=== PATIENT | male | born 1940 | race Caucasian/White ===

== ENCOUNTER 2019-08-19 09:06 | Emergency (ER) | payer MEDICARE, OTHER ==
--- NOTE | 2019-08-19 09:38 | ERPHSYRPT ---
- History of Present Illness Time Seen by Provider: 08/19/19 09:28 Source: patient, family Patient Subjective Stated Complaint: STATES HAS HAD A FEVER AND COUGH SINCE YESTERDAY. ALSO HAVING LOWER ABD PAIN. RECENTLY HAD ANGIOGRAM DONE AND HAS SEVERE BLOCKAGE IN LEFT LEG. Triage Nursing Assessment: TO ROOM PER W/C. SKIN W/D, COLOR NORMAL, RESP NONLABORED. OCCASIONAL DRY COUGH NOTED. ABD SOFT, TENDER IN LOWER ABD Physician History: 79 yo with h/o stroke with left side residual weakness, PVD s/o stenting with recent angiogram LLE needing bypass graft soon is here with worsening minimal productive cough for 2 days and fever with TMAX 102 last night which is better after tylenol. because of the worsening cough is having some pain in the lower abd/groin area of angiogram . no leg swelling/increased pain/redness reported.also reports increased urinary frequency since last night but no burning/hematuria. denies any N/V/D. he has baseline difficulty walking but since yesterday is getting a little more than usual but no focal weakness. Timing/Duration: day(s) (2), intermittent, worse Cough Quality/Degree: moderate, productive cough Modifying Factors: Improves With: nothing Associated Symptoms: fever, chills, chest pain/soreness, cough, sore throat Allergies/Adverse Reactions: acetaminophen [From [place]] Adverse Reaction (Mild, Verified 08/19/19 09:18) hydrocodone [From [place]] Adverse Reaction (Mild, Verified 08/19/19 09:18) Home Medications: Aspirin EC 325 mg [Ecotrin 325 MG] 81 mg PO DAILY 07/06/13 [History] Atorvastatin Calcium [Lipitor] 20 mg PO DAILY 07/06/13 [History] Clopidogrel Bisulfate 75 mg [PLAVIX 75 MG Tablet] 75 mg PO DAILY 07/06/13 [History] Enalapril Maleate [Vasotec] 20 mg PO BID 07/06/13 [History] Amlodipine Besylate 5 mg [Norvasc 5 mg] 5 mg PO DAILY 08/19/19 [History] Calc/D3/Mag/Zn/Ana/John/[place] [Calcium 600 mg Plus Vit D Tab] 2 each PO DAILY 08/19/19 [History] Hx Tetanus, Diphtheria Vaccination/Date Given: No Hx Influenza Vaccination/Date Given: Yes Hx Pneumococcal Vaccination/Date Given: Yes - Review of Systems Constitutional: Fever, Chills, Fatigue Eyes: No Symptoms Ears, Nose, & Throat: Throat Pain Respiratory: Cough Cardiac: Chest Pain Abdominal/Gastrointestinal: No Nausea, No Vomiting, No Diarrhea Genitourinary Symptoms: Frequency, No Dysuria, No Hematuria, No Hesitancy, No Incontinence Musculoskeletal: Myalgias Skin: No Symptoms Neurological: No Symptoms Psychological: No Symptoms Endocrine: No Symptoms Hematologic/Lymphatic: No Symptoms Immunological/Allergic: No Symptoms - Past Medical History Pertinent Past Medical History: Yes Neurological History: Stroke Cardiac History: Coronary Artery Disease, High Cholesterol, Hypertension, Peripheral Vascular Disease, Other Endocrine Medical History: Hypothyroidism - Past Surgical History Past Surgical History: Yes Other Surgical History: thyroid and para thyroid - Social History Smoking Status: Former smoker Exposure to second hand smoke: No Drug Use: none Patient Lives Alone: No - Nursing Vital Signs Nursing Vital Signs: Initial Vital Signs Temperature 98.2 F 08/19/19 09:09 Pulse Rate 91 H 08/19/19 09:09 Respiratory Rate 18 08/19/19 09:09 Blood Pressure 150/76 08/19/19 09:09 O2 Sat by Pulse Oximetry 97 08/19/19 09:09 Pain Scale Pain Intensity 5 - Physical Exam General Appearance: no apparent distress Eye Exam: eyes nml inspection Ears, Nose, Throat Exam: TMs normal, pharyngeal erythema Neck Exam: normal inspection, non-tender, supple, full range of motion, Kernig's Respiratory Exam: normal breath sounds, lungs clear, No chest tenderness Cardiovascular Exam: regular rate/rhythm, normal heart sounds, capillary refill >3 sec (LLE) Gastrointestinal/Abdomen Exam: soft, normal bowel sounds Back Exam: normal inspection Extremity Exam: normal inspection, normal range of motion Neurologic Exam: alert, oriented x 3, cooperative, cardiology physician II-XII nml as tested, normal mood/affect, No sensory deficit Skin Exam: normal color SpO2 Interpretation: normal SpO2: 97 O2 Delivery: Room Air - Course Nursing assessment & vital signs reviewed: Yes Ordered Tests: Active Orders 24 hr Category Date Time Status IV Insertion STAT Care 08/19/19 09:36 Active CHEST 2 VIEWS (PA AND LAT) Stat Exams 08/19/19 09:36 Taken BLOOD CULTURE Stat Lab 08/19/19 09:40 Received CBC W DIFF Stat Lab 08/19/19 09:55 Completed CMP Stat Lab 08/19/19 09:55 Completed Lactic Acid Stat Lab 08/19/19 09:36 Completed UA W/RFX UR CULTURE Stat Lab 08/19/19 11:29 Completed Medication Summary Discontinued Medications Generic Name Dose Route Start Last Admin Trade Name Berta PRN Reason Stop Dose Admin Oseltamivir Phosphate 30 mg 08/19/19 11:36 08/19/19 12:07 Oseltamivir Phosphate 30 Mg Cap PO 08/19/19 11:37 30 mg ONCE ONE Administration Lab/Rad Data: Laboratory Result Diagrams 08/19/19 09:55 08/19/19 09:55 Laboratory Results 08/19/19 08/19/19 08/19/19 Range/Units 11:29 09:55 09:55 WBC (4.0-10.5) K/mm3 RBC (4.1-5.6) M/mm3 Hgb (12.5-18.0) gm/dl Hct (42-50) % MCV (78-100) fl MCH (26-32) pg MCHC (32-36) g/dl RDW (11.5-14.0) % Plt Count (150-450) K/mm3 MPV (7.5-11.0) fl Gran % (36.0-66.0) % Eos # (Auto) (0-0.5) Absolute Lymphs (auto) (1.0-4.6) Absolute Monos (auto) (0.0-1.3) Lymphocytes % (24.0-44.0) % Monocytes % (0.0-12.0) % Eosinophils % (0.00-5.0) % Basophils % (0.0-0.4) % Absolute Granulocytes (1.4-6.9) Basophils # (0-0.4) Sodium 142 (137-145) mmol/L Potassium 3.9 (3.5-5.1) mmol/L Chloride 106 (98-107) mmol/L Carbon Dioxide 23 (22-30) mmol/L Anion Gap 16.8 H (5-15) MEQ/L BUN 20 (9-20) mg/dL Creatinine 1.26 H (0.66-1.25) mg/dL Estimated GFR 58.8 ML/MIN Glucose 124 H (74-106) mg/dL Lactic Acid (0.4-2.0) Calcium 9.1 (8.4-10.2) mg/dL Total Bilirubin 0.60 (0.2-1.3) mg/dL AST 33 (17-59) U/L ALT 19 (0-50) U/L Alkaline Phosphatase 79 (38-126) U/L Serum Total Protein 6.8 (6.3-8.2) g/dL Albumin 3.9 (3.5-5.0) g/dL Urine Color YELLOW (YELLOW) Urine Appearance CLEAR (CLEAR) Urine pH 5.0 (5-6) Ur Specific [place] 1.019 (1.005-1.025) Urine Protein NEGATIVE (Negative) Urine Ketones TRACE (NEGATIVE) Urine Blood SMALL (0-5) David/ul Urine Nitrite NEGATIVE (NEGATIVE) Urine Bilirubin NEGATIVE (NEGATIVE) Urine Urobilinogen NEGATIVE (0-1) mg/dL Ur Leukocyte Esterase NEGATIVE (NEGATIVE) Urine WBC (Auto) 0-2 (0-5) /HPF Urine RBC (Auto) 3-5 (0-2) /HPF U Epithel Cells (Auto) NONE (FEW) /HPF Urine Bacteria (Auto) NONE (NEGATIVE) /HPF Urine Mucus (Auto) SLIGHT (NEGATIVE) /HPF Urine Culture Reflexed NO (NO) Urine Glucose NEGATIVE (NEGATIVE) mg/dL Influenza Type A Ag NEGATIVE (NEGATIVE) Influenza Type B Ag POSITIVE (NEGATIVE) RSV (PCR) NEGATIVE (Negative) Slides for Path Review 08/19/19 08/19/19 Range/Units 09:55 09:36 WBC 11.2 H (4.0-10.5) K/mm3 RBC 4.70 (4.1-5.6) M/mm3 Hgb 14.1 (12.5-18.0) gm/dl Hct 42.5 (42-50) % MCV 90.4 (78-100) fl MCH 30.0 (26-32) pg MCHC 33.2 (32-36) g/dl RDW 14.3 H (11.5-14.0) % Plt Count 130 L (150-450) K/mm3 MPV 12.4 H (7.5-11.0) fl Gran % 88.8 H (36.0-66.0) % Eos # (Auto) 0.01 (0-0.5) Absolute Lymphs (auto) 0.32 L (1.0-4.6) Absolute Monos (auto) 0.91 (0.0-1.3) Lymphocytes % 2.9 L (24.0-44.0) % Monocytes % 8.1 (0.0-12.0) % Eosinophils % 0.1 (0.00-5.0) % Basophils % 0.1 (0.0-0.4) % Absolute Granulocytes 9.94 H (1.4-6.9) Basophils # 0.01 (0-0.4) Sodium (137-145) mmol/L Potassium (3.5-5.1) mmol/L Chloride (98-107) mmol/L Carbon Dioxide (22-30) mmol/L Anion Gap (5-15) MEQ/L BUN (9-20) mg/dL Creatinine (0.66-1.25) mg/dL Estimated GFR ML/MIN Glucose (74-106) mg/dL Lactic Acid 1.6 (0.4-2.0) Calcium (8.4-10.2) mg/dL Total Bilirubin (0.2-1.3) mg/dL AST (17-59) U/L ALT (0-50) U/L Alkaline Phosphatase (38-126) U/L Serum Total Protein (6.3-8.2) g/dL Albumin (3.5-5.0) g/dL Urine Color (YELLOW) Urine Appearance (CLEAR) Urine pH (5-6) Ur Specific [place] (1.005-1.025) Urine Protein (Negative) Urine Ketones (NEGATIVE) Urine Blood (0-5) David/ul Urine Nitrite (NEGATIVE) Urine Bilirubin (NEGATIVE) Urine Urobilinogen (0-1) mg/dL Ur Leukocyte Esterase (NEGATIVE) Urine WBC (Auto) (0-5) /HPF Urine RBC (Auto) (0-2) /HPF U Epithel Cells (Auto) (FEW) /HPF Urine Bacteria (Auto) (NEGATIVE) /HPF Urine Mucus (Auto) (NEGATIVE) /HPF Urine Culture Reflexed (NO) Urine Glucose (NEGATIVE) mg/dL Influenza Type A Ag (NEGATIVE) Influenza Type B Ag (NEGATIVE) RSV (PCR) (Negative) Slides for Path Review YES - Progress Progress: improved, re-examined Air Movement: good Progress Note: he has no fever while in here . no new focal neuro sx. has influenza b and started on renal dose of tamiflu . has questionabale infilterate and started on doxy . no UTI. discussed with patient family about obs abdomission vs going home and they are ok with going home which seems reasonable as his gen weakness and bodyaches are from flu most likely.has thrombocytopenia but not critically low and recommended recheck with PCP in 1-2 days which he would. at this point he is being discharged with anticipatory guidance to return for any worsening which he understands. 08/19/19 12:22 Blood Culture(s) Obtained: No Antibiotics given: Yes Counseled pt/family regarding: lab results, diagnosis, need for follow-up, rad results - Departure Departure Disposition: Home Clinical Impression: Influenza B, Bronchitis Condition: Fair Critical Care Time: No Referrals: CARI HARRINGTON [Primary Care Provider] - (1-2 days for re evaluation and re check of platelet count ) Additional Instructions: take tylenol as needed for fever/body aches. follow up with PCP for re evaluation in 1-2 days and recheck of the platelets . return to ER for worsening Prescriptions: Doxycycline Hyclate 100 mg [Vibramycin 100 MG] 100 mg PO BID #14 tab Oseltamivir 75 mg [Tamiflu 75MG Capsule] 30 mg PO BID #9 cap
[2019-08-19 10:28] LABS: Absolute Neutrophil Ct (ANC) 9.94 (1.4-6.9); BASOPHIL % 0.1 % (0.0-0.4); Basophil (Absolute #) 0.01 (0-0.4); Eosinophil % 0.1 % (0.00-5.0); Eosinophil (Absolute #) 0.01 (0-0.5); Hematocrit 42.5 % (42-50); Hemoglobin 14.1 gm/dl (12.5-18.0); Lymphocyte (Absolute #) 0.32 (1.0-4.6); Lymphocytes % 2.9 % (24.0-44.0); Mean Cell Volume 90.4 fl (78-100); Mean Corpuscular Hgb Concent. 33.2 g/dl (32-36); Mean Platelet Volume 12.4 fl (7.5-11.0); Monocyte (Absolute #) 0.91 (0.0-1.3); Monocytes % 8.1 % (0.0-12.0); Neutrophil % 88.8 % (36.0-66.0); Platelet Count 130 K/mm3 (150-450); Red Cell Distribution Width 14.3 % (11.5-14.0); White Blood Count 11.2 K/mm3 (4.0-10.5)
[2019-08-19 10:36] LABS: ALBUMIN 3.9 g/dL (3.5-5.0); ANION GAP 16.8 MEQ/L (5-15); BILIRUBIN,TOTAL 0.6 mg/dL (0.2-1.3); Calcium 9.1 mg/dL (8.4-10.2); Creatinine 1 1.26 mg/dL (0.66-1.25); Potassium 3.9 mmol/L (3.5-5.1); Total Protein 6.8 g/dL (6.3-8.2)
[2019-08-19 10:59] LABS: INFLUENZA A NEGATIVE (NEGATIVE)
[2019-08-19 11:00] LABS: INFLUENZA B POSITIVE (NEGATIVE); RESPIRATORY SYNCTIAL VIRUS NEGATIVE (Negative)
[2019-08-19 11:34] LABS: Appearance CLEAR (CLEAR); Bilirubin NEGATIVE (NEGATIVE); Blood SMALL Ery/ul (0-5); Glucose NEGATIVE (NEGATIVE); Ketones TRACE (NEGATIVE); Leukocyte Esterase NEGATIVE (NEGATIVE); Mucus SLIGHT /HPF (NEGATIVE); Nitrite NEGATIVE (NEGATIVE); Protein,Urine Dip NEGATIVE (Negative); Specific Gravity 1.019 (1.005-1.025); Urobilinogen NEGATIVE mg/dL (0-1); WBC 0-2 /HPF (0-5)
[2019-08-19] MEDS ORDERED: OSELTAMIVIR PHOSPHATE 30 MG CAP PO ONE (11:36)
[2019-08-19 11:37] LABS: Slide Review 1 YES
[2019-08-19 12:15] VITALS: BP 133/62; PULSE 88
[2019-08-19 12:21] VITALS: O2SAT 97
--- NOTE | 2019-08-19 18:29 | XRAY ---
Indication: Cough and fever. Comparison: August 08, 2019. PA/lateral chest unchanged again demonstrating minimal left base atelectasis/scarring. Remaining heart and lungs unremarkable. No new/acute cardiopulmonary abnormalities.
== END 2019-08-19 12:49 | disposition home or self-care (01) ==
LOC: ED 09:06
DX: J11.1 Influenza due to unidentified influenza virus with other respiratory manifestations (principal); J40 Bronchitis, not specified as acute or chronic; R07.9 Chest pain, unspecified; R05 Cough; R50.9 Fever, unspecified; Z79.899 Other long term (current) drug therapy; R53.83 Other fatigue; I25.10 Atherosclerotic heart disease of native coronary artery without angina pectoris; E78.00 Pure hypercholesterolemia, unspecified; I10 Essential (primary) hypertension; I73.9 Peripheral vascular disease, unspecified
CPT/HCPCS: 36000; 36415; 71046; 80053; 81001; 83605; 85025; 87040; 87631; 99284; A9270-GY

== ENCOUNTER 2019-12-22 15:46 | Emergency (ER) | payer MEDICARE, OTHER ==
--- NOTE | 2019-12-22 15:55 | ERPHSYRPT ---
- History of Present Illness Time Seen by Provider: 12/22/19 15:55 Source: patient, family Exam Limitations: no limitations Physician History: Is a 79-year-old gentleman who has a history of chronic recurring constipation. His last bowel movement this episode was approximately 3 to 4 days ago. He only took Mylanta this morning. He has not tried any other form of medication or treatment to relieve his constipation. Patient states he is never had a colonoscopy. Patient states he is not on any narcotic medication. Patient states he has no significant abdominal pain. He said no nausea vomiting. Patient states he has been passing flatus and in fact during this examination he passed a large amount of flatus. Timing/Duration: day(s) (3 to 4 days) Severity: mild Associated Symptoms: No nausea, No vomiting, No abdominal pain, No shortness of breath, No chest pain, No fever, No loss of appetite Allergies/Adverse Reactions: acetaminophen [From [place]] Adverse Reaction (Mild, Verified 08/19/19 09:18) hydrocodone [From [place]] Adverse Reaction (Mild, Verified 08/19/19 09:18) Home Medications: Atorvastatin Calcium [Lipitor] 20 mg PO DAILY 07/06/13 [History] Clopidogrel Bisulfate 75 mg [PLAVIX 75 MG Tablet] 75 mg PO DAILY 07/06/13 [History] Enalapril Maleate [Vasotec] 20 mg PO BID 07/06/13 [History] Amlodipine Besylate 5 mg [Norvasc 5 mg] 5 mg PO DAILY 08/19/19 [History] Calc/D3/Mag/Zn/Ana/John/[place] [Calcium 600 mg Plus Vit D Tab] 2 each PO DAILY 08/19/19 [History] Aspirin 81 mg PO DAILY 12/22/19 [History] Hx Tetanus, Diphtheria Vaccination/Date Given: No Hx Influenza Vaccination/Date Given: Yes Hx Pneumococcal Vaccination/Date Given: Yes Travel Risk - International Travel Have you traveled outside of the country in past 3 weeks: No - Coronavirus Screening Are you exhibiting any of the following symptoms?: No Close contact with a COVID-19 positive Pt in past 14-21 Days: No - Review of Systems Constitutional: No Symptoms Eyes: No Symptoms Ears, Nose, & Throat: No Symptoms Respiratory: No Symptoms Cardiac: No Symptoms Abdominal/Gastrointestinal: Constipation, No Abdominal Pain, No Nausea, No Vomiting, No Diarrhea Genitourinary Symptoms: No Symptoms Musculoskeletal: No Symptoms Skin: No Symptoms Neurological: No Symptoms Psychological: No Symptoms Endocrine: No Symptoms Hematologic/Lymphatic: No Symptoms Immunological/Allergic: No Symptoms All Other Systems: Reviewed and Negative - Past Medical History Pertinent Past Medical History: Yes Neurological History: Stroke Cardiac History: Coronary Artery Disease, High Cholesterol, Hypertension, Peripheral Vascular Disease, Other Endocrine Medical History: Hypothyroidism Musculoskeletal History: No Pertinent History GI Medical History: Other (Recurrent constipation) History: No Pertinent History Psycho-Social History: No Pertinent History Male Reproductive Disorders: No Pertinent History - Past Surgical History Past Surgical History: Yes Neuro Surgical History: No Pertinent History Cardiac: No Pertinent History Respiratory: No Pertinent History Gastrointestinal: No Pertinent History Genitourinary: No Pertinent History Musculoskeletal: No Pertinent History Male Surgical History: No Pertinent History Other Surgical History: thyroid and para thyroid - Social History Smoking Status: Former smoker Exposure to second hand smoke: No Drug Use: none Patient Lives Alone: No - Nursing Vital Signs Nursing Vital Signs: Initial Vital Signs Temperature 98.2 F 12/22/19 15:49 Pulse Rate 67 12/22/19 15:49 Respiratory Rate 18 12/22/19 15:49 Blood Pressure 113/62 12/22/19 15:49 O2 Sat by Pulse Oximetry 96 12/22/19 15:49 Pain Scale Pain Intensity 0 - Physical Exam General Appearance: no apparent distress, alert Eye Exam: PERRL/EOMI, eyes nml inspection Ears, Nose, Throat Exam: normal ENT inspection, moist mucous membranes Neck Exam: normal inspection, non-tender, supple, full range of motion Respiratory Exam: normal breath sounds, lungs clear, airway intact, No chest tenderness, No respiratory distress Cardiovascular Exam: regular rate/rhythm, normal heart sounds, normal peripheral pulses Gastrointestinal/Abdomen Exam: soft, normal bowel sounds, other (No distention) , No tenderness, No guarding, No rebound Rectal Exam: not done Back Exam: normal inspection, normal range of motion, No CVA tenderness, No vertebral tenderness Extremity Exam: normal inspection, normal range of motion, pelvis stable Neurologic Exam: alert, oriented x 3, cooperative, access control specialist II-XII nml as tested, normal mood/affect, nml cerebellar function, nml station & gait Skin Exam: normal color, warm, dry Lymphatic Exam: No adenopathy SpO2 Interpretation: normal O2 Delivery: Room Air - Course Nursing assessment & vital signs reviewed: Yes - Progress Progress: unchanged Counseled pt/family regarding: diagnosis, need for follow-up - Departure Departure Disposition: Home Clinical Impression: Constipation Condition: Stable Critical Care Time: No Referrals: CARI HARRINGTON [Primary Care Provider] - Additional Instructions: Drink plenty of fluids. Increase your activity. Use MiraLAX daily. You can obtain MiraLAX [id number] and follow those directions. You have been provided with a bottle of magnesium citrate. Drink that full bottle rapidly. Approximately 45 minutes later give yourself a fleets enema rectally which you were provided. Follow-up with your primary care physician for referral to a morgue attendant for a colonoscopy if indicated. If you have constipation again make sure you are drinking well, add a stool softener to your bowel hygiene regimen, use [id number] magnesium citrate and [id number] fleets enema rectally and/or [id number] Dulcolax suppositories or glycerin suppositories.
[2019-12-22] MEDS ORDERED: CITROMA 296 ML PO ONE (16:58)
[2019-12-22] MEDS ORDERED: CITROMA 296 ML ONE (17:05)
[2019-12-22 17:09] VITALS: BP 125/56; PULSE 59; O2SAT 95
== END 2019-12-22 17:27 | disposition home or self-care (01) ==
LOC: ED 15:46
DX: R07.89 Other chest pain (principal); Z79.899 Other long term (current) drug therapy; G62.9 Polyneuropathy, unspecified; I10 Essential (primary) hypertension; Z86.73 Personal history of transient ischemic attack (TIA), and cerebral infarction without residual deficits; E78.00 Pure hypercholesterolemia, unspecified
CPT/HCPCS: 99283; A9270-GY